=== PATIENT | male | born 1965 | race Caucasian/White ===

== ENCOUNTER 2018-07-20 12:01 | Outpatient (REF) | payer BC, SELFPAY ==
[2018-07-20 21:59] LABS: Anion Gap 13.1 mmol/L (3-11); BUN 30 mg/dL (7-18); CO2 24.9 mmol/L (21.0-32.0); CREATININE 1.29 mg/dL (0.70-1.30); Calcium 9.1 mg/dL (8.5-10.1); Chloride 98 mmol/L (98-107); Cholesterol 174 mg/dL (50-200); Estimated GFR 58.96 (mL/min/1.73m2); Glucose 108 mg/dL (70-100); HDL Cholesterol 32 mg/dL (40-60); LDL CHOLESTEROL 118 mg/dL (<100); Potassium 3.6 mmol/L (3.5-5.1); Sodium 136 mmol/L (136-145); Triglyceride 188 mg/dL (30-150)
== END 2018-07-20 12:21 ==
LOC: NCHCN 12:01
PROVIDERS: PCP Internal Medicine; Visit Provider Internal Medicine
DX: Z00.00 Encounter for general adult medical examination without abnormal findings (principal); Z13.228 Encounter for screening for other metabolic disorders; Z13.220 Encounter for screening for lipoid disorders
CPT/HCPCS: 80048; 80061; 83721

== ENCOUNTER 2019-02-25 09:45 | Outpatient (REF) | payer BC, SELFPAY ==
[2019-02-25 23:35] LABS: Anion Gap 12.5 mmol/L (3-11); BUN 15 mg/dL (7-18); CO2 25.5 mmol/L (21.0-32.0); CREATININE 0.88 mg/dL (0.70-1.30); Calcium 8.8 mg/dL (8.5-10.1); Calculated LDL 119 mg/dL; Chloride 96 mmol/L (98-107); Cholesterol 182 mg/dL (50-200); Glucose 85 mg/dL (70-100); HDL Cholesterol 48 mg/dL (40-60); Potassium 4.3 mmol/L (3.5-5.1); Sodium 134 mmol/L (136-145); Triglyceride 75 mg/dL (30-150)
== END 2019-02-25 10:05 ==
LOC: NCHCN 09:45
PROVIDERS: PCP Internal Medicine; Visit Provider Internal Medicine
DX: R73.01 Impaired fasting glucose (principal); E78.5 Hyperlipidemia, unspecified; I10 Essential (primary) hypertension
CPT/HCPCS: 80048; 80061; 83721

== ENCOUNTER 2020-03-20 21:49 | Outpatient (REF) | payer BC, SELFPAY ==
[2020-03-20 21:55] LABS: ALT 60 U/L (16-63); AST 32 U/L (15-37); Alkaline Phosphatase 58 U/L (46-116); BUN 25 mg/dL (7-18); Bilirubin, Total 0.6 mg/dL (0.2-1.0); CREATININE 0.89 mg/dL (0.70-1.30); Calcium 9.5 mg/dL (8.5-10.1); Calculated LDL 100 mg/dL (<100); Chloride 102 mmol/L (98-107); Cholesterol 162 mg/dL (<200); Glucose 91 mg/dL (74-106); HDL Cholesterol 34 mg/dL (40-60); Potassium 3.9 mmol/L (3.5-5.1); Sodium 137 mmol/L (136-145); Total Protein 7.4 g/dL (6.4-8.2); Triglyceride 144 mg/dL (<150)
== END 2020-03-20 22:09 ==
LOC: NCHCN 21:49
PROVIDERS: PCP Internal Medicine; Visit Provider Internal Medicine
DX: I10 Essential (primary) hypertension (principal); R73.01 Impaired fasting glucose; E78.5 Hyperlipidemia, unspecified
CPT/HCPCS: 80053; 80061

== ENCOUNTER 2021-09-30 09:34 | Outpatient (REF) | payer BC, SELFPAY ==
[2021-09-30 16:47] LABS: Hemoglobin A1C 5.8 % (<5.7)
[2021-09-30 16:49] LABS: ALT 76 U/L (16-63); AST 37 U/L (15-37); Albumin 3.9 g/dL (3.4-5.0); Alkaline Phosphatase 58 U/L (46-116); Anion Gap 13.1 mmol/L (3-11); BUN 26 mg/dL (7-18); Bilirubin, Total 0.5 mg/dL (0.2-1.0); CO2 21.9 mmol/L (21.0-32.0); CREATININE 1.3 mg/dL (0.70-1.30); Calcium 8.9 mg/dL (8.5-10.1); Calculated LDL 70 mg/dL (<100); Chloride 102 mmol/L (98-107); Cholesterol 155 mg/dL (<200); Estimated GFR 57.75 (mL/min/1.73m2); Glucose 111 mg/dL (74-106); HDL Cholesterol 31 mg/dL (40-60); Potassium 4.2 mmol/L (3.5-5.1); Sodium 137 mmol/L (136-145); Total Protein 7.3 g/dL (6.4-8.2); Triglyceride 273 mg/dL (<150)
== END 2021-09-30 09:35 | disposition home or self-care (01) ==
LOC: NCHCN 09:34
PROVIDERS: PCP Internal Medicine; Visit Provider Internal Medicine
DX: I10 Essential (primary) hypertension (principal); E78.5 Hyperlipidemia, unspecified; R73.03 Prediabetes
CPT/HCPCS: 80053; 80061; 83036; 85610

== ENCOUNTER 2021-11-01 15:12 | Outpatient (REF) | payer BC, SELFPAY ==
[2021-11-01 14:27] LABS: HCT 47.4 % (40.0-50.0); HGB 16.2 g/dL (13.5-17.5); MCH 29.5 pg (27.0-33.0); MCHC 34.2 % (32.0-36.0); MCV 86.3 fL (80-95); MPV 11.9 fL (8.0-11.0); Platelet Count 231 10^3/uL (130-400); RBC 5.49 10^6/uL (4.36-5.78); RDW 13.4 % (11.8-14.1); RDW-SD 42.8 fL; WBC 7.89 10^3/uL (4.4-10.8)
[2021-11-01 14:34] LABS: CREATININE 0.8 mg/dL (0.70-1.30)
[2021-11-02 08:35] LABS: HBs Antibody, Quant <3.1 mIU/mL (See Note); Hepatitis B Surface Ab Negative (See Note)
[2021-11-02 08:47] LABS: Hepatitis B Surface Ag Negative (Negative)
[2021-11-02 09:40] LABS: Hepatitis C Ab w Rflx HCV PCR Negative (Negative)
== END 2021-11-01 15:13 | disposition home or self-care (01) ==
LOC: NCHCN 15:12
PROVIDERS: PCP Internal Medicine; Visit Provider Internal Medicine
DX: K76.0 Fatty (change of) liver, not elsewhere classified (principal); Z11.59 Encounter for screening for other viral diseases
CPT/HCPCS: 85027; 86706; 86803; 87340; 82565

== ENCOUNTER 2022-05-04 22:29 | Outpatient (REF) | payer BC, SELFPAY ==
[2022-05-04 22:37] LABS: ALT 22 U/L (16-63); AST 31 U/L (15-37); Albumin 3.4 g/dL (3.4-5.0); Alkaline Phosphatase 117 U/L (46-116); Anion Gap 7.3 mmol/L (3-11); BUN 13 mg/dL (7-18); Bilirubin, Total 1.3 mg/dL (0.2-1.0); CO2 29.7 mmol/L (21.0-32.0); CREATININE 1.1 mg/dL (0.70-1.30); Calcium 8.9 mg/dL (8.5-10.1); Chloride 102 mmol/L (98-107); Estimated GFR 79.77 (mL/min/1.73m2); Glucose 89 mg/dL (74-106); NT-proBNP 2926 pg/mL (<300); Potassium 3.8 mmol/L (3.5-5.1); Sodium 139 mmol/L (136-145); Total Protein 8.5 g/dL (6.4-8.2); Uric Acid 6.4 mg/dL (3.5-7.2)
== END 2022-05-04 22:30 | disposition home or self-care (01) ==
LOC: NCHCN 22:29
PROVIDERS: PCP Internal Medicine; Visit Provider Internal Medicine
DX: I50.9 Heart failure, unspecified (principal); M10.9 Gout, unspecified
CPT/HCPCS: 80053; 83880; 84550

== ENCOUNTER 2022-06-02 09:53 | Outpatient (REF) | payer BC, SELFPAY ==
[2022-06-02 14:28] LABS: HCT 40.2 % (40.0-50.0); HGB 12.1 g/dL (13.5-17.5); MCH 22.4 pg (27.0-33.0); MCHC 30.1 % (32.0-36.0); MCV 75 fL (80-95); Platelet Count 266 10^3/uL (130-400); RBC 5.39 10^6/uL (4.36-5.78); RDW 18.6 % (11.8-14.1); RDW-SD 48.7 fL; WBC 6.77 10^3/uL (4.4-10.8)
[2022-06-02 14:50] LABS: ALT 38 U/L (16-63); AST 33 U/L (15-37); Albumin 3.9 g/dL (3.4-5.0); Alkaline Phosphatase 97 U/L (46-116); Anion Gap 10.2 mmol/L (3-11); BUN 25 mg/dL (7-18); Bilirubin, Total 0.8 mg/dL (0.2-1.0); CO2 26.8 mmol/L (21.0-32.0); Calcium 9.6 mg/dL (8.5-10.1); Chloride 100 mmol/L (98-107); Estimated GFR 89.44 (mL/min/1.73m2); Glucose 132 mg/dL (74-106); NT-proBNP 622 pg/mL (<300); Potassium 3.3 mmol/L (3.5-5.1); Sodium 137 mmol/L (136-145); Total Protein 8.3 g/dL (6.4-8.2)
== END 2022-06-02 09:54 | disposition home or self-care (01) ==
LOC: NCHCN 09:53
PROVIDERS: PCP Internal Medicine; Visit Provider Internal Medicine
DX: I50.9 Heart failure, unspecified (principal)
CPT/HCPCS: 80053; 85027; 83880

== ENCOUNTER 2022-08-02 11:27 | Outpatient (REF) | payer BC, SELFPAY ==
[2022-08-02 14:50] LABS: Anion Gap 8.1 mmol/L (3-11); BUN 22 mg/dL (7-18); CO2 27.9 mmol/L (21.0-32.0); Chloride 101 mmol/L (98-107); Estimated GFR 89.44 (mL/min/1.73m2); Glucose 97 mg/dL (74-106); Potassium 3.8 mmol/L (3.5-5.1); Sodium 137 mmol/L (136-145)
== END 2022-08-02 11:28 | disposition home or self-care (01) ==
LOC: NCHCN 11:27
PROVIDERS: PCP Internal Medicine; Visit Provider Nurse Practitioner Family
DX: I10 Essential (primary) hypertension (principal)
CPT/HCPCS: 80048

== ENCOUNTER 2022-08-30 12:55 | Outpatient (REF) | payer BC, SELFPAY ==
[2022-08-30 15:47] LABS: ALT 35 U/L (16-63); AST 35 U/L (15-37); Albumin 4.1 g/dL (3.4-5.0); Alkaline Phosphatase 92 U/L (46-116); Anion Gap 8.6 mmol/L (3-11); BUN 26 mg/dL (7-18); Bilirubin, Total 0.8 mg/dL (0.2-1.0); CO2 28.4 mmol/L (21.0-32.0); Calcium 9.5 mg/dL (8.5-10.1); Calculated LDL 41 mg/dL (<100); Chloride 102 mmol/L (98-107); Cholesterol 115 mg/dL (<200); Estimated GFR 89.44 (mL/min/1.73m2); Glucose 110 mg/dL (74-106); HDL Cholesterol 50 mg/dL (40-60); Sodium 139 mmol/L (136-145); Total Protein 8.2 g/dL (6.4-8.2); Triglyceride 122 mg/dL (<150)
[2022-08-30 16:30] LABS: Hemoglobin A1C 5.9 % (<5.7)
== END 2022-08-30 12:56 | disposition home or self-care (01) ==
LOC: NCHCN 12:55
PROVIDERS: PCP Internal Medicine; Visit Provider Nurse Practitioner Family
DX: I10 Essential (primary) hypertension (principal); R73.03 Prediabetes
CPT/HCPCS: 80053; 80061; 83036

== ENCOUNTER 2023-09-27 12:17 | Outpatient (REF) | payer BC, SELFPAY ==
[2023-09-27 14:29] LABS: HCT 44.3 % (40.0-50.0); HGB 14.5 g/dL (13.5-17.5); MCH 26.3 pg (27.0-33.0); MCHC 32.7 % (32.0-36.0); MCV 80 fL (80-95); Platelet Count 175 10^3/uL (130-400); RBC 5.51 10^6/uL (4.36-5.78); RDW 16.5 % (11.8-14.1); RDW-SD 47.9 fL; WBC 7.24 10^3/uL (4.4-10.8)
[2023-09-27 14:58] LABS: ALT 57 U/L (16-63); AST 33 U/L (15-37); Albumin 3.7 g/dL (3.4-5.0); Alkaline Phosphatase 72 U/L (46-116); Anion Gap 7.9 mmol/L (3-11); BUN 23 mg/dL (7-18); CO2 30.1 mmol/L (21.0-32.0); Calcium 9.3 mg/dL (8.5-10.1); Calculated LDL 37 mg/dL (<100); Chloride 105 mmol/L (98-107); Cholesterol 115 mg/dL (<200); Estimated GFR 88.88 (mL/min/1.73m2); Glucose 94 mg/dL (74-106); HDL Cholesterol 46 mg/dL (40-60); Potassium 4.2 mmol/L (3.5-5.1); Sodium 143 mmol/L (136-145); Total Protein 7.3 g/dL (6.4-8.2); Triglyceride 164 mg/dL (<150)
[2023-09-27 15:57] LABS: Hemoglobin A1C 6.1 % (<5.7)
== END 2023-09-27 12:18 | disposition home or self-care (01) ==
LOC: NCHCN 12:17
PROVIDERS: PCP Internal Medicine; Visit Provider Nurse Practitioner Family
DX: R73.03 Prediabetes (principal); E78.5 Hyperlipidemia, unspecified; I10 Essential (primary) hypertension; I35.1 Nonrheumatic aortic (valve) insufficiency; Z79.01 Long term (current) use of anticoagulants
CPT/HCPCS: 80053; 80061; 85027; 83036

== ENCOUNTER 2024-05-28 09:10 | Outpatient (REF) | payer BC, SELFPAY ==
[2024-05-28 16:50] LABS: ALT 75 U/L (16-63); AST 49 U/L (15-37); Albumin 3.5 g/dL (3.4-5.0); Alkaline Phosphatase 80 U/L (46-116); Anion Gap 12.4 mmol/L (3-11); BUN 24 mg/dL (7-18); Bilirubin, Total 0.82 mg/dL (0.2-1.0); CO2 24.6 mmol/L (21.0-32.0); Calcium 8.9 mg/dL (8.5-10.1); Chloride 105 mmol/L (98-107); Estimated GFR 88.33 (mL/min/1.73m2); Glucose 91 mg/dL (74-106); Potassium 3.9 mmol/L (3.5-5.1); Sodium 142 mmol/L (136-145); Total Protein 7.2 g/dL (6.4-8.2)
[2024-05-28 17:07] LABS: Uric Acid 6.5 mg/dL (3.5-7.2)
== END 2024-05-28 09:11 | disposition home or self-care (01) ==
LOC: NCHCN 09:10
PROVIDERS: PCP Internal Medicine; Visit Provider Nurse Practitioner Family
DX: R73.03 Prediabetes (principal); M10.9 Gout, unspecified
CPT/HCPCS: 80053; 83036; 84550